=== PATIENT | male | born 1960 | race Caucasian/White ===

== ENCOUNTER 2024-11-22 18:02 | Emergency (ER) | payer MEDICARE, BC ==
[~2024-11-22] VITALS: Ht 170.2 cm; Wt 81.8 kg
[2024-11-22 18:17] VITALS: TEMP 97.8
--- NOTE | 2024-11-22 18:27 | ELECTROCARDIOGRAPH REPORT ---
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
[2024-11-22 18:45] LABS: MEAN PLATELET VOLUME 8.8 FL (7.4-10.4); RED CELL DISTRIBUTION WIDTH 13.8 % (11.5-14.5)
--- NOTE | 2024-11-22 18:50 | RADIOLOGY REPORT ---
CLINICAL HISTORY: CP TECHNIQUE: Single view of the chest was obtained. COMPARISON: None FINDINGS: The heart size and pulmonary vasculature are normal. The lungs are clear. IMPRESSION: NO ACUTE CARDIOPULMONARY PROCESS.
[2024-11-22 19:06] LABS: CREATININE 2.62 MG/DL (0.60-1.10); PRO BRAIN NATRIURETIC PEPTIDE 176 PG/ML (0-125); TOTAL CARBON DIOXIDE 25.1 MMOL/L (24-32); eCRCL 26 ML/MIN; eGFR 25 ML/MIN
[2024-11-22 21:14] VITALS: BP 146/63; PULSE 78; RESP 15; O2SAT 99
--- NOTE | 2024-11-22 21:30 | Physician Documentation ---
History of Present Illness ~ Chief Complaint: Irregular Heartbeat Stated Complaint: CP HPI Patient is a 64-year-old male that presents to the emergency department for evaluation of irregular heartbeat noted earlier today. Patient reports that he lives at his home outside working on his car sitting when he felt accelerated heart rate a pause followed by accelerated heart rate again. Patient reports that he was able to palpate his heart rate and it felt irregular he reported to the emergency department for evaluation. Patient reports that he is followed by a flat bed knitter. Has a history of chronic renal insufficiency. Denies shortness of breath chest pain chest pressure but does report lightheadedness and a need to sit down a couple of times during the episodes of irregular heartbeat. Medication Reconciliation Allergies: Coded Allergies: Sulfa (Sulfonamide Antibiotics) (Verified Allergy, Severe, RASH, 11/22/24) Review of Systems ROS As stated above in the HPI, otherwise all systems are reviewed and negative. Physical Exam Vital Signs: Temperature: 97.8, Heart Rate: 78, Respiratory Rate: 15, BP: 146/63, Pulse Oximetry: 99, Weight: 81.820 Oxygen Flow Rate: 0 Physical Exam VITALS: Reviewed and as above. GENERAL: Alert, no apparent distress. HEENT: Normocephalic, atraumatic, PERRL, EOMI, dry mucosa, no erythema RESPIRATORY: Lungs clear, normal breath sounds, no respiratory distress. CHEST: No accessory muscle use, no retractions CV: Regular rate, rhythm, no edema, no murmur, No: JVD GI: Soft, non-tender, bowels sounds present, no rebound, guarding, or rigidity BACK: No CVA tenderness, or swelling MUSCULOSKELETAL No deformities, no edema SKIN: Warm and dry, no rash NEURO: Oriented x4, No motor or sensory deficit PSYCH: Normal mood and affect, no agitation Progress Results/Orders Results/Orders Vital Signs 11/22/24 11/22/24 18:17 21:14 Temp 97.8 Pulse 88 78 Resp 16 15 B/P (MAP) 119/77 146/63 (90) Pulse Ox 98 99 O2 Flow Rate 0 Laboratory Tests Test 11/22/24 18:13 11/22/24 20:20 White Blood Count 5.4 Red Blood Count 4.09 L Hemoglobin 13.2 L Hematocrit 38.8 L Mean Corpuscular Volume 94.9 Mean Corpuscular Hemoglobin 32.4 H Mean Corpuscular Hemoglobin Concent 34.1 Red Cell Distribution Width 13.8 Platelet Count 261 Mean Platelet Volume 8.8 Neutrophils (%) (Auto) 50.4 Lymphocytes (%) (Auto) 35.2 Monocytes (%) (Auto) 10.3 Eosinophils (%) (Auto) 3.3 Basophils (%) (Auto) 0.8 Neutrophils # (Auto) 2.7 Lymphocytes # (Auto) 1.9 Monocytes # (Auto) 0.6 Eosinophils # (Auto) 0.2 Basophils # (Auto) 0.0 CBC Comment Sodium Level 137 Potassium Level 4.2 Chloride Level 104 Carbon Dioxide Level 25.1 Anion Gap 8 Blood Urea Nitrogen 43 H Creatinine 2.62 H Estimated GFR/1.73 m2 25 BUN/Creatinine Ratio 16.4 Glucose Level 95 Calcium Level 9.6 Troponin I High Sensitivity 18 36 Pro-B-Type Natriuretic Peptide 176 H Albumin 4.3 Thyroid Stimulating Hormone (TSH) 1.77 Chemistry Comments Troponin I High Sens Percent Delta 100 Troponin I Hi Sens Absolute Change 18 Medical Decision Making Findings Exam without evidence of volume overload so doubt heart failure. EKG without signs of active ischemia. Given the timing of pain to ER presentation, single troponin was negative so doubt NSTEMI. Presentation not consistent with acute PE,pneumothorax (not visualized on chest xr), thoracic aortic dissection, pericarditis, tamponade, pneumonia (no infectious symptoms, clear chest xr), myocarditis (no recent illness, neg trop). so plan to discharge patient home with PMD follow up. Patient noted to have decreased renal function even from his baseline. Discussed this with my attending. Recommendation at this time is to have the patient follow up with his flat bed knitter and regular physician consider a nephrology referral as patient demonstrates an exacerbation of chronic renal failure. No electrolyte derangement or fluid overload noted. Patient is stable to go home follow up as an outpatient. Education has been provided about patient's diagnoses today and the need for follow up with his primary care provider and flat bed knitter. The patient has been provided with instructions to follow up with the emergency department if he has any worsening of his current symptoms or any additional concerning symptoms i.e. shortness of breath chest pain chest pressure lightheadedness episodes of syncope or any other concerning symptoms that we discussed here today. Differential Dx:Considerations: Include: angina / CT, atrial dysrhythmia, atrial fibrillation, atrial flutter, MAT, PACs, PSVT, sinus tachycardia, WPW, 1st degree AV block, 2nd degree AVB-type 1, 2nd degree AVB-type 2, 3rd degree AV block, PVCs, torsades de pointes, ventricular fibrillation, ventricular tachycardia, other Differential Dx:Considerations: Include anxiety/panic attack, Include digoxin toxicity, Include electrolyte disorder, Include heart failure, Include hyperthyroidism, Include hyperventilation, Include hypoxia, Include pacemaker malfunction, Include pulmonary embolus, Include renal failure, Include other Departure Disposition: 01 HOME / SELF CARE / HOMELESS Impression: Primary Impression: Palpitations Additional Impression: Chronic renal insufficiency Condition: Stable Discharge Instructions: Chronic Kidney Disease, Adult, Palpitations, [id number], Cardiac Arrhythmia Additional Instructions: Exam without evidence of volume overload so doubt heart failure. EKG without signs of active ischemia. Given the timing of pain to ER presentation, single troponin was negative so doubt NSTEMI. Presentation not consistent with acute PE,pneumothorax (not visualized on chest xr), thoracic aortic dissection, pericarditis, tamponade, pneumonia (no infectious symptoms, clear chest xr), myocarditis (no recent illness, neg trop). so plan to discharge patient home with PMD follow up. Patient noted to have decreased renal function even from his baseline. Discussed this with my attending. Recommendation at this time is to have the patient follow up with his flat bed knitter and regular physician consider a nephrology referral as patient demonstrates an exacerbation of chronic renal failure. No electrolyte derangement or fluid overload noted. Patient is stable to go home follow up as an outpatient. Education has been provided about patient's diagnoses today and the need for follow up with his primary care provider and flat bed knitter. The patient has been provided with instructions to follow up with the emergency department if he has any worsening of his current symptoms or any additional concerning symptoms i.e. shortness of breath chest pain chest pressure lightheadedness episodes of syncope or any other concerning symptoms that we discussed here today. Referrals: NO PRIMARY CARE PROVIDER (PCP) Education Educated: Patient Educated regarding: diagnosis, treatment, need for follow up ESHA MACDAMS Nov 22, 2024 21:30
[2024-11-23] MEDS ORDERED: ALLO300T8 PO (00:33)
[2024-11-23] MEDS ORDERED: FENO160T PO (00:33)
[2024-11-23] MEDS ORDERED: EZET10TA48 PO (00:33)
[2024-11-23] MEDS ORDERED: LISI20TA28 PO (00:33)
[2024-11-24] MEDS ORDERED: METO-395 PO (12:53)
[2024-11-24] MEDS ORDERED: ASPI-1265 PO (12:53)
[2024-11-24] MEDS ORDERED: ISOS30TA84 PO (12:53)
== END 2024-11-22 21:34 | disposition home or self-care (01) ==
LOC: ER 18:03
DX: R00.2 Palpitations (principal); N18.9 Chronic kidney disease, unspecified; Z88.2 Allergy status to sulfonamides
CPT/HCPCS: 36415; 71045; 80048; 83880; 84443; 84484; 85025; 93005; 99285

== ENCOUNTER 2024-12-27 07:26 | Day surgery (SDC) | payer MEDICARE, BC ==
[2024-12-26 10:51] LABS: MEAN PLATELET VOLUME 8.7 FL (7.4-10.4); RED CELL DISTRIBUTION WIDTH 13.6 % (11.5-14.5)
[2024-12-26 11:05] LABS: APTT 25 SECONDS (22-32); INR 1.1 INR
[2024-12-26 11:07] LABS: CREATININE 2.24 MG/DL (0.60-1.10); TOTAL CARBON DIOXIDE 27.9 MMOL/L (24-32); eGFR 29 ML/MIN
[2024-12-27] VITALS (12 sets, daily range): BP systolic 102–136; BP diastolic 59–75; PULSE 55–69; RESP 10–18; TEMP 97.7; O2SAT 94–96
[~2024-12-27] VITALS: Ht 172.7 cm; Wt 77.7 kg
[~2024-12-27 07:26] MED LIST: ALLO300T8 PO; EZET10TA48 PO; FENO160T PO; LISI20TA28 PO; METO-395 PO
--- NOTE | 2024-12-27 08:06 | ELECTROCARDIOGRAPH REPORT ---
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 JUVENTINO Sol Measurements Intervals [place] Rate: 56 P: 89 [place]: 169 QRS: 65 QRSD: 100 T: 40 QT: 394 QTc: 381 Interpretive Statements Sinus rhythm Electronically Signed On 12-27-2024 14:44:[address] JUVENTINO Sol Please click the below link to view image of tracing.
[2024-12-27] MEDS ORDERED: ASPI-1674 PO (08:10)
[2024-12-27] MEDS ORDERED: ASPI-1265 PO (08:10)
[2024-12-27] MEDS ORDERED: ISOS30TA84 PO (08:13)
[2024-12-27] MEDS ORDERED: CHOL50CA2 PO (08:13)
[2024-12-27] MEDS ORDERED: VITC500T PO (08:13)
[2024-12-27] MEDS ORDERED: LIDOcaine 1% (10mg/ml) 2ml vial ONE (08:16)
[2024-12-27] MEDS ORDERED: iohexol 350 MG/ML 50ML vial IV ONE (08:16)
[2024-12-27] MEDS ORDERED: METO-539 PO (08:16)
[2024-12-27] MEDS ORDERED: verapamil 2.5 mg/ml inj IV ONE (08:16)
[2024-12-27] MEDS ORDERED: midazolam 1 mg/ML 2ml injection ONE (08:16)
[2024-12-27] MEDS ORDERED: fentaNYL/PF 50MCG/1 ML 2ML syringe ONE (08:16)
[2024-12-27] MEDS ORDERED: heparin 1,000unit/ml 10ml vial 10 ML ONE (08:16)
[2024-12-27] MEDS ORDERED: nitroGLYCERIN 500mcg/5mL D5W 5 ML IV ONE (08:18)
[2024-12-27] MEDS: sodium bicarbonate 1meq/ml syr 150 ML in dextrose 5%-water 1,000 ML IV ONE (08:26)
--- NOTE | 2024-12-27 14:34 | CARDIOLOGY REPORT ---
DATE OF SERVICE: 12/27/2024 DICTATING PHYSICIAN: JUVENTINO Carvajal MD CARDIAC CATHETERIZATION GENDER: Male. AGE: 64 years. PRIMARY PHYSICIAN: VAZQUEZ Prasad WASHER AND CAPPER MACHINE OPERATOR: JUVENTINO Carvajal MD INDICATION: The patient is a 64-year-old male with a history of hypertension, hyperlipidemia, CKD, and nonobstructive CAD who was hospitalized with STEMI on 11/23/2024 and found to have on Lexiscan an anteroseptal reversible defect. At that time, the patient had some important social event/wedding; hence, he went home on medical therapy and today is being scheduled for an elective cardiac catheterization. Risks, benefits, and alternative options discussed. Informed consent obtained. The patient had a cardiac catheterization back in 2002 at [facility] and was found to have nonobstructive CAD. He has a CKD with a creatinine around 2.3 and he is waiting for a current Nephrology consultation. The patient understands the risk of contrast nephropathy. He has been pre-treated with IV fluids, bicarbonate and Mucomyst. Risks, benefits, and alternative options discussed. Informed consent obtained. PROCEDURE TECHNIQUE: The patient underwent right heart catheterization from right antecubital approach, 6-[place] sheath. Postprocedure, access site hemostasis secured with manual compression. The patient underwent left heart catheterization from right radial approach, 6-[place] right radial sheath. Postprocedure, right radial access site hemostasis secured with manual radial band. The patient tolerated the procedure well. COMPLICATIONS: None. PROCEDURES: * Ultrasound-guided right radial artery visualization and access. * Right heart catheterization. * Left heart catheterization. * LVG. * Coronary cineangiography. * Conscious sedation time of 30 minutes. FINDINGS: HEMODYNAMICS: Aortic systolic 99, diastolic 57, mean 75 mmHg. LVEDP of 14 mmHg. There is no significant gradient across the aortic valve. Right atrial mean 2 mmHg. RV 23/6 mmHg. PA 17/1 mmHg. Pulmonary capillary wedge 3 mmHg. Cardiac output by thermodilution method 5.35 L/min. Cardiac index was 2.79 L/min/m2. Aortic oxygen saturation 95%. Pulmonary artery oxygen saturation 72%. CORONARY CINEANGIOGRAPHY: Coronary cineangiography showed normal LV function. LV ejection fraction 60%. Left main coronary artery was engaged with JL4 catheter with a right radial approach, is large caliber with mild luminal irregularities. LAD is a medium caliber vessel arising at the bifurcation of left main coronary artery, courses through the anterior interventricular groove, wrapping around the apex. The LAD near the septal jacquard loom weaver close to the bifurcation has 80% plus narrowing. Diagonal ostium is moderately involved. Diagonal is 2.25 mm caliber vessel with mild luminal irregularities. Circumflex artery is a medium caliber vessel arising at the bifurcation of left main coronary artery, courses through the left AV groove. Mid circumflex has 30% narrowing. Dominant OM is 2.75 mm with mild luminal irregularities. Ongoing circumflex has 80% narrowing as well. It is a relatively small vessel. Right coronary artery is a medium caliber vessel arising from the right aortic sinus, courses through the right AV groove and enters the posterior crux by dividing into PDA and a posterolateral branch. RCA and its branches have mild luminal irregularities. IMPRESSION: A 64-year-old male with LV ejection fraction 60%. LVEDP of 14 mmHg with no significant gradient across the aortic valve. Pulmonary capillary wedge pressure 3 mmHg. PA systolic pressure of 17 mmHg. Left main normal. LAD at the origin of the diagonal has 80% narrowing. Circumflex with mid 30% narrowing. Ongoing circumflex distally is small vessel with 80% narrowing. RCA with minimal luminal irregularities. RECOMMENDATIONS: Recommend continue aggressive coronary risk factor modification. The coronary intervention will be staged because of his CKD. Continue optimal hydration. Risks, benefits, and alternative options discussed. The patient was told to come back to the ER if he has any more chest pain when he is waiting for his coronary stent. JUVENTINO Carvajal MD TID: [id number] RECEIPT: [id number] /JUN cc: VAZQUEZ Prasad MTDD
[2024-12-27 14:42] LABS: ISTAT HGB ART 12.2 g/dl (14.0-17.9); ISTAT Hct ART 36 %PCV (42-52); ISTAT O2 SATURATION ARTERIAL 95 % (95-98); ISTAT SOURCE BLNK
[2024-12-27 14:43] LABS: ISTAT HGB MIX 12.2 g/dl (14.0-17.9); ISTAT Hct MIX 36 %PCV (42-52); ISTAT O2 SATURATION MIX VENOUS 72 % (60-80); ISTAT SOURCE BLNK
== END 2024-12-27 15:00 | disposition home or self-care (01) ==
LOC: SSTAY O 07:26
PROVIDERS: ATTEND Internal Medicine Cardiovascular Disease
DX: R94.39 Abnormal result of other cardiovascular function study (principal); I25.10 Atherosclerotic heart disease of native coronary artery without angina pectoris; I12.9 Hypertensive chronic kidney disease with stage 1 through stage 4 chronic kidney disease, or unspecified chronic kidney disease; N18.9 Chronic kidney disease, unspecified; E78.5 Hyperlipidemia, unspecified; M10.9 Gout, unspecified; Z79.899 Other long term (current) drug therapy; Z98.890 Other specified postprocedural states; Z88.2 Allergy status to sulfonamides; Z79.01 Long term (current) use of anticoagulants; Z82.49 Family history of ischemic heart disease and other diseases of the circulatory system
CPT/HCPCS: 36415; 80048; 82803; 85014; 85025; 85610; 85730; 93005; 93460; 99152; 99153; A6258; A6402; C1725; C1751; C1894; J1644; J2003; J2250; J3010; J3490; J7030; J7070; Q9967; Z7610; 76937

== ENCOUNTER 2025-01-01 08:41 | Day surgery (SDC) | payer MEDICARE, BC ==
[2024-12-29 10:20] LABS: MEAN PLATELET VOLUME 8.1 FL (7.4-10.4); RED CELL DISTRIBUTION WIDTH 13.4 % (11.5-14.5)
[2024-12-29 10:32] LABS: APTT 25 SECONDS (22-32); INR 1.0 INR
[2024-12-29 10:36] LABS: CREATININE 1.85 MG/DL (0.60-1.10); TOTAL CARBON DIOXIDE 30.0 MMOL/L (24-32); eGFR 37 ML/MIN
[~2025-01-01] VITALS: Ht 172.7 cm; Wt 78.0 kg
[2025-01-01] VITALS (14 sets, daily range): BP systolic 102–162; BP diastolic 63–77; PULSE 52–78; RESP 12–20; TEMP 98.2; O2SAT 93–98
[~2025-01-01 08:41] MED LIST changes: +ASPI-1674 PO; +CHOL50CA2 PO; -EZET10TA48 PO; +EZET10TA80 PO; +ISOS30TA84 PO; -METO-395 PO; +METO-539 PO; +VITC500T PO
--- NOTE | 2025-01-01 09:31 | ELECTROCARDIOGRAPH REPORT ---
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 JUVENTINO Sol Measurements Intervals [place] Rate: 62 P: 57 [place]: 169 QRS: 33 QRSD: 97 T: 20 QT: 386 QTc: 392 Interpretive Statements Sinus rhythm Electronically Signed On 01-01-2025 17:11:[address] JUVENTINO Sol Please click the below link to view image of tracing.
[2025-01-01] MEDS: sodium bicarbonate 1meq/ml syr 150 ML in dextrose 5%-water 1,000 ML IV ONE (10:44)
[2025-01-01] MEDS ORDERED: verapamil 2.5 mg/ml inj IV ONE (11:04)
[2025-01-01] MEDS ORDERED: LIDOcaine 1% (10mg/ml) 2ml vial ONE (11:04)
[2025-01-01] MEDS ORDERED: heparin 1,000unit/ml 10ml vial 10 ML ONE (11:05)
[2025-01-01] MEDS ORDERED: nitroGLYCERIN 500mcg/5mL D5W 5 ML IV ONE ×3 (11:06→12:34)
[2025-01-01] MEDS ORDERED: fentaNYL/PF 50MCG/1 ML 2ML syringe ONE (11:41)
[2025-01-01] MEDS ORDERED: midazolam 1 mg/ML 2ml injection ONE (11:41)
[2025-01-01] MEDS ORDERED: heparin 25,000 UNIT/250ml bag 250 ML IV ONE (11:43)
[2025-01-01] MEDS ORDERED: clopidogrel 300mg tablet ONE (12:45)
[2025-01-01] MEDS ORDERED: CLOP-32 PO (13:29)
[2025-01-01] MEDS ORDERED: ASPI-1265 PO (13:30)
[2025-01-01] MEDS ORDERED: EVOL140P3 SUBCUT (13:31)
[2025-01-01] MEDS ORDERED: ASPI-611 PO (13:40)
--- NOTE | 2025-01-01 13:48 | ELECTROCARDIOGRAPH REPORT ---
[facility] Test Date: 2025-01-01 Test Time: 13:45:26 Pat Name: RAMYA CLIFFORD Department: [facility] Patient ID: [id number] Room: Gender: M Sample Book Maker: NAYANA : 1960 Requested By: BLOSSOM SOL Order Number: [id number] Reading MD: Dr. JUVENTINO Sol Measurements Intervals [place] Rate: 51 P: 76 [place]: 188 QRS: 49 QRSD: 97 T: 17 QT: 422 QTc: 389 Interpretive Statements Sinus rhythm Electronically Signed On 01-01-2025 17:11:[address] JUVENTINO Sol Please click the below link to view image of tracing.
[2025-01-01] MEDS: ACETYLCYSTEINE 200 MG/1 ML 4 ML ORAL SOLUTION PO ONE (18:09)
--- NOTE | 2025-01-02 04:15 | CARDIOLOGY REPORT ---
DATE OF SERVICE: 01/01/2025 DICTATING PHYSICIAN: JUVENTINO Carvajal MD CORONARY INTERVENTION REPORT GENDER: Male. AGE: 64. HEIGHT: 172 cm. WEIGHT: 78 kg. BODY SURFACE AREA: 1.19 m2. INDICATION: The patient is a 64-year-old male with history of hypertension, hyperlipidemia, CKD, CAD, had an NSTEMI on 11/23/2024, and a Lexiscan, showed anteroseptal defect and the patient came back on 12/27/2024 for coronary angiography. At that time, he was found to have an EF of 60%, proximal mid LAD 80% narrowing, diagonal mild narrowing, mid circumflex 80% narrowing. The patient also had CKD. His procedure was staged and after hydration, his creatinine is currently 1.8. After discussing risks, benefits, alternative options, the patient underwent coronary intervention. Risks, benefits, and alternative options were discussed, informed consent was obtained. DESCRIPTION OF PROCEDURE: The patient underwent coronary intervention through right radial branch, 6-Stateless right radial sheath. Post surgery access site hemostasis secured with right radial band. The patient tolerated the procedure well. COMPLICATIONS: None. PROCEDURE: 1. PTCA stenting of the LAD. 2. Angioplasty of the diagonal ostium. 3. PTCA stenting of 80% mid circumflex narrowing. 4. Conscious sedation of 60 minutes. FINDINGS: HEMODYNAMICS: Aortic systolic 120, diastolic 80. Procedure carried out after adequate. A 6-Stateless XB LAD 3.5 gave good support. The LAD lesion was crossed with PT2 moderate wire. Because of the angulation, I could not get into the diagonal branch; however, the LAD lesion was angioplastied with 2/12 mm noncompliant balloon at 10 atmospheric pressure. After that, we were able to avoid the diagonal lesion. Diagonal lesion was angioplastied with 2/12 balloon at 8 atmospheric pressure. LAD lesion was stented with proximal to mid. There was a moderate long narrowing as well besides the tight narrowing, so the lesion was stented with 2.5/30 Resolute Markos stent at 12 followed by 13 atmospheric pressure. The patient postdilated with 3/12 mm NC balloon at 13 atmospheric pressure with ALIDA 3 flow. The patient tolerated the procedure well with no complication. PTCA STENTING OF THE MID CIRCUMFLEX ARTERY: Lesion was crossed with a PT2 moderate wire. Lesion was angioplastied with 2/12 semi complaint balloon at 8 atmospheric pressure. The lesion was stented with 2/18 Resolute Markos stent deployed at 12 atmospheric pressure post procedure 0%, ALIDA 3 flow. The patient tolerated the procedure well with no complication. IMPRESSION: A 64-year-old male with 80% long LAD lesion successfully angioplastied and stented with 2.5/30 Resolute [place] stent postdilated to three mm. Diagonal ostium was angioplastied. Mid circumflex 80% successfully angioplastied and stented with 2/8 Resolute [place]ford stent to 0% with ALIDA 3 flow. The patient tolerated the procedure well with no complications. RECOMMENDATIONS: .. Recommended diet, weight loss, and exercise program. Keeping LDL less than 70 mg%, and regular exercise program. The patient is intolerant of statin. He was prescribed Repatha 140 mg subcutaneous b.i.d. Uninterrupted aspirin and Plavix at least for one year emphasized to the patient. JUVENTINO Carvajal MD TID: [id number] RECEIPT: [id number] FABIÁN/SHARIF/OLIVIA cc: Lopez Koehler MD MTDD
== END 2025-01-01 19:00 | disposition home or self-care (01) ==
LOC: SSTAY O 08:41
PROVIDERS: ATTEND Internal Medicine Cardiovascular Disease
DX: I25.10 Atherosclerotic heart disease of native coronary artery without angina pectoris (principal); I12.9 Hypertensive chronic kidney disease with stage 1 through stage 4 chronic kidney disease, or unspecified chronic kidney disease; N18.9 Chronic kidney disease, unspecified; E78.5 Hyperlipidemia, unspecified; M10.9 Gout, unspecified; Z79.899 Other long term (current) drug therapy; Z98.890 Other specified postprocedural states; Z88.2 Allergy status to sulfonamides
CPT/HCPCS: 36415; 80048; 85025; 85347; 85610; 85730; 92921; 93005; 99152; 99153; A6258; A6402; C1725; C1751; C1769; C1874; C1894; C9600; J1644; J2003; J2250; J3010; J3490; J7030; J7070; Q0163; Q9967; Z7610; 76937; C9601

== ENCOUNTER 2025-01-28 14:52 | Inpatient (IN) | payer MEDICARE, BC ==
[~2025-01-28] VITALS: Ht 170.2 cm; Wt 78.4 kg
[~2025-01-28 14:52] MED LIST changes: +ASPI-611 PO; +CLOP-32 PO; +EVOL140P3 SUBCUT
--- NOTE | 2025-01-28 15:00 | ELECTROCARDIOGRAPH REPORT ---
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 Rosy Sargent Measurements Intervals [place] Rate: 140 P: 0 [place]: 0 QRS: 39 QRSD: 112 T: -37 QT: 261 QTc: 398 Interpretive Statements Atrial flutter with predominant 2:1 AV block Borderline intraventricular conduction delay Low voltage, precordial leads Repol abnrm suggests ischemia, diffuse leads Electronically Signed On 01-28-2025 16:20:[address] Rosy Sargent Please click the below link to view image of tracing.
--- NOTE | 2025-01-28 15:21 | Physician Documentation ---
History of Present Illness ~ Chief Complaint: Palpitations Stated Complaint: PALPITATIONS Time Seen by MD: 15:16 OK to notify your PCP?: Yes Primary Medical Doctor: LION ERNANDEZ MD Source: patient, RN/MD, RN notes reviewed, old records Mode of Arrival: POV Exam Limitations: no limitations HEART Score: 5 HPI This patient is a 64 y/o male who presents to ED for palpitations. Patient reports that approximately 30 minutes prior to arrival he started to experience dizziness and palpitations. This prompted him to check his heart rate, which was in the 150s. Patient states that he has had a similar episode once in the past in November this year. After that, patient had two stents placed by library technology instructor, Dr. Carvajal and he states he has not had another similar episode until today. Patient reports he is currently taking blood thinners ASA and Plavix, and has not missed any doses. He denies any recent stimulant or alcohol use. Patient denies any other associated symptoms at this time. Patient denies any other alleviating or exacerbating factors. Medication Reconciliation Allergies: Coded Allergies: Sulfa (Sulfonamide Antibiotics) (Verified Allergy, Severe, RASH, 11/22/24) Scheduled Allopurinol (Allopurinol), 1 TAB PO DAILY, (Reported) Ascorbic Acid* (Vitamin C*), 1 TAB PO DAILY, (Reported) Aspirin (Aspirin), 2 TAB PO DAILY, (Reported) Cholecalciferol (Vitamin D3) (Vitamin D3), 1 CAP PO DAILY, (Reported) Clopidogrel Bisulfate (Plavix), 1 TAB PO DAILY, (Reported) Ezetimibe (Ezetimibe), 1 TAB PO DAILY, (Reported) Fenofibrate (Fenofibrate), 1 TAB PO DAILY, (Reported) Lisinopril (Lisinopril), 1 TAB PO DAILY, (Reported) Discontinued Medications Aspirin (Aspirin), 1 TAB PO DAILY, (Reported) Discontinued Reason: patient no longer taking Aspirin (Aspir 81), 2 TAB PO DAILY Discontinued Reason: patient no longer taking Clopidogrel Bisulfate (Plavix), 1 TAB PO DAILY Discontinued Reason: patient no longer taking Evolocumab (Repatha Sureclick), 1 SYR SUBCUT Q2W Discontinued Reason: patient no longer taking Isosorbide Mononitrate (Isosorbide Mononitrate Er), 1 TAB PO BID, (Reported) Discontinued Reason: patient no longer taking Metoprolol Succinate* (Toprol Xl*), 1 TAB PO DAILY, (Reported) Discontinued Reason: patient no longer taking Past Medical History Past Medical History: Atrial Fibrillation, Coronary Artery Disease, Hypertension Past Surgical History: angioplasty Patient History: Coronary artery disease in mother Smoking Status: Never smoker Alcohol Use: None Drug Use: none Review of Systems All Other Systems at this time: Reviewed and Negative Physical Exam Vital Signs: RN Vital Signs have been reviewed: Yes, Temperature: 98.0, Source: Oral, Heart Rate: 144, Respiratory Rate: 20, BP: 130/69, Pulse Oximetry: 95, Weight: 78.400 Oxygen Flow Rate: 0 Physical Exam General: The patient is well developed, well nourished, nontoxic appearing and is in no acute distress. Skin: [place], warm and dry with no rashes. HEENT: Head was normocephalic and atraumatic. Eyes - pupils equal, round, reactive to light and accommodation. Extraocular movements were intact. Conjunctivae were nonicteric. Ears - bilateral tympanic membranes were normal. The mouth and oropharynx were clear with moist mucous membranes. There were no pharyngeal exudates or erythema. Neck: Supple and nontender. There was no jugular venous distention, lymphadenopathy, thyromegaly or masses. Chest: Clear to auscultation bilaterally without wheezes, rales or rhonchi. No accessory muscle use. No dullness to percussion. Heart: Rapid rate and irregular rhythm. S1, S2. No murmurs. Palpation of the chest wall was normal. No rubs or thrills. Abdomen: Soft, nontender and nondistended. Positive bowel sounds. No guarding or rebound. No hepatosplenomegaly or palpable masses. Extremities: No cyanosis, clubbing or edema. The patient moves all extremities. Pulses were equal and symmetric. Neurologic: Cranial nerves II-XII were intact. Sensation was intact to light touch throughout. Motor strength was 5/5 in all four extremities. Deep tendon reflexes were intact in both upper and lower extremities. Psychologic: The patient was oriented to person, place and time. The patient demonstrated appropriate judgement and insight. Progress Progress Note 1558: Paged hospitalist 1611: Case discussed with hospitalist who agrees to evaluate patient for admission. Results/Orders Results/Orders Orders - LAZARO LOVELACE MD Electrocardiogram (01/28/25 14:55) Chest,Single View (01/28/25 15:49) Monitor (01/28/25 15:01) Saline Lock (01/28/25 15:01) Oxygen (01/28/25 15:01) Hs Troponin I W Calculations (01/28/25 18:01) Diltiazem-Ns 100mg/100ml (Cardizem-Ns 10 (01/28/25 15:30) Page Hospitalist (01/28/25 15:58) Fill Out Med Reconciliation (01/28/25 15:58) Completed Orders - LAZARO LOVELACE MD Electrocardiogram (01/28/25 14:55) Chest,Single View (01/28/25 15:49) Cbc/Diff (01/28/25 15:01) BMP (01/28/25 15:01) PBNP (01/28/25 15:01) Hs Troponin I W Calculations (01/28/25 15:01) Hs Troponin I W Calculations (01/28/25 17:01) Ethanol (01/28/25 15:17) MG (01/28/25 15:17) Urinalysis, Cult If Indicated (01/28/25 15:17) Drug Screen, Urine (01/28/25 15:17) Magnesium Sulf-Water 2g/50ml (Magnesium (01/28/25 15:20) Diltiazem Iv (Cardizem Iv 5mg/Ml Inj.) (01/28/25 15:30) Hgb A1c (01/28/25 14:58) Medications Received in ER Medications (Trade) Dose Ordered Sig/Opal Route PRN Reason Start Time Stop Time Status Last Admin Dose Admin Magnesium Sulfate 50 ml @ 25 mls/hr ONCE ONCE IV 01/28/25 15:20 01/28/25 17:19 DC 01/28/25 15:26 25 MLS/HR (Cardizem IV 5mg/ ml inj.) 15 mg ONCE ONCE IV 01/28/25 15:30 01/28/25 15:31 DC 01/28/25 15:40 15 MG Diltiazem HCl 100 ml @ 5 mls/hr Q20H PRN IV PER PROTOCOL 01/28/25 15:30 10/26/25 15:40 5 MLS/HR Vital Signs 01/28/25 01/28/25 01/28/25 01/28/25 15:03 15:40 15:40 15:52 Temp 98.0 Pulse 144 148 142 124 Resp 20 18 B/P (MAP) 130/69 128/70 125/75 112/75 (87) Pulse Ox 95 94 O2 Flow Rate 0 0 01/28/25 01/28/25 01/28/25 15:54 16:00 16:03 Pulse 124 84 Resp 16 11 B/P (MAP) 127/72 105/71 (82) Pulse Ox 94 O2 Flow Rate 0 Laboratory Tests Test 01/28/25 14:58 White Blood Count 5.3 Red Blood Count 4.00 L Hemoglobin 13.3 L Hematocrit 38.1 L Mean Corpuscular Volume 95.4 Mean Corpuscular Hemoglobin 33.2 H Mean Corpuscular Hemoglobin Concent 34.8 Red Cell Distribution Width 13.9 Platelet Count 277 Mean Platelet Volume 8.8 Neutrophils (%) (Auto) 50.3 Lymphocytes (%) (Auto) 35.4 Monocytes (%) (Auto) 8.9 Eosinophils (%) (Auto) 4.4 Basophils (%) (Auto) 1.0 Neutrophils # (Auto) 2.7 Lymphocytes # (Auto) 1.9 Monocytes # (Auto) 0.5 Eosinophils # (Auto) 0.2 Basophils # (Auto) 0.1 CBC Comment Sodium Level 133 L Potassium Level 3.9 Chloride Level 98 L Carbon Dioxide Level 25.5 Anion Gap 10 Blood Urea Nitrogen 52 H Creatinine 2.55 H Estimated GFR/1.73 m2 25 BUN/Creatinine Ratio 20.4 H Glucose Level 129 H Hemoglobin A1c 5.9 Calcium Level 9.7 Magnesium Level 2.3 Troponin I High Sensitivity 6 Pro-B-Type Natriuretic Peptide < 30 Albumin 4.3 Chemistry Comments Ethyl Alcohol Level < 10 Re-Evaluation Re-Evaluation : Treatment Given: calcium channel marguerite Re-Evaluation: Improved Additional Comment Patient was seen and examined. Patient was given reassurance. Patient just had cardiac stents placed. There was no signs of ischemic injury. However patient is in rapid AFib with RVR given doses of Cardizem bolus and drip. Patient initially received magnesium for possible electrolyte abnormalities. Laboratory work showed some mild anemia with a hemoglobin of 13 hematocrit of 38 but no signs of infection with a normal WBC of 5.3. Troponins are negative x2 proBNP negative however patient does have some abnormalities on chemistry with a sodium slightly low at 133 potassium 3.9 which is reassuring and normal magnesium 2.3 before receiving additional magnesium chloride 98 CO2 25 BUN 52 creatinine 2.55 with a ratio of 20.4 with glucose elevated at 129. Patient has worsening kidney functions from prior visits. Tox screen is negative alcohol is negative as well urine is negative for any urinary tract infection. After being placed on a monitor patient is started to become rate controlled heart rate in the 70s who would have intermittent paroxysmal AFib with normal sinus rhythm. Continuous proteomics scientist interpretation shows rapid AFib heart rate 140s, occasional ectopy, abnormal, my interpretation. Pulse oximetry monitor interpretation shows normal oxygenation 95% room air, normal, my interpretation. 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 Lazaro Lovelace Measurements Intervals [place] Rate: 140 P: 0 CO: 0 QRS: 39 QRSD: 112 T: -37 QT: 261 QTc: 398 Interpretive Statements Atrial flutter with predominant 2:1 AV block Borderline intraventricular conduction delay Low voltage, precordial leads Repol abnrm suggests ischemia, diffuse leads Electronically Signed On 01-28-2025 16:20:[address] Lazaro Lovelace Please click the below link to view image of tracing. EKG Date and Time:01/28/25 1458 Electronically Signed by: LAZARO LOVELACE MD Date and Time: 01/28/25 1620 NO PRIMARY CARE PROVIDER~ cc: ~ Chest X-Ray : Interpreted By: both Additional Comments [address] [address] DIAGNOSTIC RADIOLOGY Patient: RAMYA CLIFFORD Medical Record: [id number] [facility] : 1960, Age: 64 Sex: Male Location: ER Patient Status: [facility] ER Service Date/Time: 01/28/251548 Ordering Physician: LAZARO LOVELACE MD Exam: CHEST,SINGLE VIEW DI CHEST,SINGLE VIEW, HISTORY: CP COMPARISON: DI CHEST,SINGLE VIEW on DOS: 11/22/24 DI CHEST,SINGLE VIEW on DOS: 11/22/24 TECHNICAL DATA: 1 view of the chest was obtained. FINDINGS: Lines and tubes: None Cardiomediastinal silhouette: normal Pulmonary vasculature: normal Lung expansion: normal Lung airspace: normal Lung interstitium: normal Pleura: normal Pneumothorax: no Bones: Unremarkable Other: no IMPRESSION: No acute intrathoracic abnormality. Electronically Signed by:PIERO SILVEIRA MD Date & Time: 01/28/251555 Dictated by: PIERO SILVEIRA MD Dictation date and time: 01/28/25 155 Primary Care Provider: NO PRIMARY CARE PROVIDER cc: LAZARO LOVELACE MD ~ EDMD DR. LOVELACE REVIEWED IMAGES AND AGREES WITH ABOVE FINDINGS Heart Score: Heart Score Response (Comments) Value History Slightly Suspicious 0 EKG Repolarization Disturb 1 Age >65 2 Risk Factors >3 or Hx ASHD 2 Troponin Normal limit 0 Total 5 Medical Decision Making Additional information obtaine: old records Findings Rapid AFib with possible ischemic changes, electrolyte abnormalities infectious volume status such as dehydration around considered. Differential Dx:Considerations: Include: angina / HI, atrial dysrhythmia, atrial fibrillation, atrial flutter, MAT, PACs, PSVT, sinus tachycardia, WPW, 1st degree AV block, 2nd degree AVB-type 1, 2nd degree AVB-type 2, 3rd degree AV block, PVCs, torsades de pointes, ventricular fibrillation, ventricular tachycardia, other Differential Dx:Considerations: Include anxiety/panic attack, Include digoxin toxicity, Include electrolyte disorder, Include heart failure, Include hyperthyroidism, Include hyperventilation, Include hypoxia, Include pacemaker malfunction, Include pulmonary embolus, Include renal failure, Include other Departure Time of Disposition: 15:58 Disposition: ADMITTED INPATIENT Admitted to Inpatient Unit: yes, to hospitalist Admission Level of Care: PCU with Tele Impression: Primary Impression: Atrial fibrillation with RVR Additional Impressions: Acute on chronic renal insufficiency Hyponatremia Condition: Guarded Referrals: NO PRIMARY CARE PROVIDER (PCP) Education Educated: Patient Educated regarding: diagnosis, treatment, prognosis Critical Care Note Total Time (mins): 30 Critical Care Note The very real possibility of a deterioration of this patient's condition requir ed the highest level of my preparedness for sudden, emergent intervention. I provided critical care services, which included medication orders, frequent reevaluations of the patient's condition and response to treatment, ordering and reviewing test results, and discussing the case with various consultants. Excludes time spent performing separately billable procedures. The critical care time associated with the care of the patient was 30 minutes. Signature Scribe Signature: Scribed for Lazaro Lovelace MD by Shirlene Garcia. 01/28/25 15:40 Attestation: The note accurately reflects work and decisions made by me.Lazaro Lovelace MD 01/28/25 15:21 LAZARO LOVELACE MD Jan 28, 2025 15:21
[2025-01-28] MEDS: magnesium sulf-water 2g/50mL 50 ML IV ONE (15:26)
[2025-01-28] MEDS: diltiazem 5mg/ml 5ml inj. IV ONE (15:40)
[2025-01-28] MEDS: diltiazem-NS 100mg/100ml 100 ML IV PRN (15:40)
[2025-01-28 15:49] LABS: MEAN PLATELET VOLUME 8.8 FL (7.4-10.4); RED CELL DISTRIBUTION WIDTH 13.9 % (11.5-14.5)
--- NOTE | 2025-01-28 15:58 | RADIOLOGY REPORT ---
DI CHEST,SINGLE VIEW, HISTORY: CP COMPARISON: DI CHEST,SINGLE VIEW on DOS: 11/22/24 DI CHEST,SINGLE VIEW on DOS: 11/22/24 TECHNICAL DATA: 1 view of the chest was obtained. FINDINGS: Lines and tubes: None Cardiomediastinal silhouette: normal Pulmonary vasculature: normal Lung expansion: normal Lung airspace: normal Lung interstitium: normal Pleura: normal Pneumothorax: no Bones: Unremarkable Other: no IMPRESSION: No acute intrathoracic abnormality.
[2025-01-28 16:02] LABS: CREATININE 2.55 MG/DL (0.60-1.10); PRO BRAIN NATRIURETIC PEPTIDE < 30 PG/ML (0-125); TOTAL CARBON DIOXIDE 25.5 MMOL/L (24-32); eCRCL 27 ML/MIN; eGFR 25 ML/MIN
[2025-01-28] MEDS ORDERED: magnesium Cl slow-release 64mg tablet PO PRN (16:10)
[2025-01-28] MEDS ORDERED: potassium Cl 40MEQ/1/2NS 520ml 520 ML IV PRN (16:10)
[2025-01-28] MEDS ORDERED: magnesium sulf-water 4G/100mL 100 ML IV PRN (16:10)
[2025-01-28] MEDS ORDERED: potassium Cl 20 mEq SR tablet PO PRN ×2 (16:10)
[2025-01-28] MEDS ORDERED: ondansetron/PF 4mg/2ml inj IV PRN (16:10)
[2025-01-28] MEDS ORDERED: mag hydrox/Alum hydrox/simeth 30ml oral suspension PO PRN (16:10)
[2025-01-28] MEDS ORDERED: magnesium hydroxide 30ml (MOM) UD suspension PO PRN (16:10)
[2025-01-28] MEDS ORDERED: magnesium sulf-water 2g/50mL 50 ML IV PRN (16:10)
[2025-01-28 16:16] LABS: ETHANOL < 10 MG/DL (<10)
[2025-01-28] MEDS: PERFLUTREN PROTEIN-A MICROSPHR (Optison) 0.22 MG/ML 3ML VIAL IV ONE (16:21)
[2025-01-28] MEDS ORDERED: CLOP-32 PO (16:30)
[2025-01-28] MEDS ORDERED: ASPI-1265 PO (16:30)
[2025-01-28 16:46] LABS: LEUKOCYTE ESTERASE ,URINE NEGATIVE (Neg); NITRITES, URINE NEGATIVE (Neg); OCCULT BLOOD,URINE NEGATIVE (Neg)
[2025-01-28 16:48] LABS: UA COLLECTION TYPE URINAL
[2025-01-28 17:03] LABS: URINE AMPHETAMINE SCREEN NEGATIVE (Neg); URINE BARBITUATE SCREEN NEGATIVE (Neg); URINE BENZODIAZEPINES SCREEN NEGATIVE (Neg); URINE CANNABINOID SCREEN NEGATIVE (Neg); URINE COCAINE SCREEN NEGATIVE (Neg); URINE METHADONE SCREEN NEGATIVE (Neg); URINE OPIATE SCREEN NEGATIVE (Neg); URINE PHENCYCLIDINE SCREEN NEGATIVE (Neg)
--- NOTE | 2025-01-28 17:48 | HISTORY AND PHYSICAL-Residence ---
History & Physical Providers to CC Resident Creating Document: WILD HAGAN, RES ~ History of Present Illness Primary Medical Doctor: LION KOEHLER MD Reason for Admit\Complaint: Palpitations History of Present Illness 64-year-old male with HTN, HLD, known CAD, and chronic kidney disease (baseline creatinine 1.7 in 2023, eGFR 42) initially presented on 11/22/2024 to the ED with palpitations. During that hospitalization he had rate variability on telemetry ([id number]), normal K and TSH, and an echocardiogram with preserved LV function (EF 6070%). A Lexiscan showed reversible anteroseptal and lateral defects. Coronary angiography was performed 12/27/[address] Too Fenton and found severe coronary disease (proximalmid LAD 80%, mid circumflex 80%). He underwent right radial PTCA with stents to the proximalmid LAD and mid circumflex; the diagonal ostium was balloon-angioplastied. He had known CKD and was hydrated; creatinine during prior admission trended down to 1.8 and he was discharged on metoprolol succinate and isosorbide dinitrate. He now presents again today with palpitations beginning at 2:30 PM. He claims this episode was similar to the 1 he had in November 2024. He also denied symptoms like chest pain or shortness of breath during the episode. The episode was constant until he received the diltiazem drip in the ED. He claims that the episode was associated with mild dizziness but denied any syncopal attacks. In the ED he was noted to be in atrial flutter with 2:1 AV block; he received a diltiazem drip and converted to sinus rhythm with HR 70 and BP 94/68. Current labs: creatinine 2.55 (BUN 52), troponins negative, tox screen negative, ETOH <10. Prior admission urine studies: urine creatinine 147, urine sodium 109, urine potassium 26, urine urea 970. Recent A1c 6.3. Lipids: LDL 82, total chol 146, TG 162, TSH 1.86. He reports chronic elevation of creatinine since 2019 and a remote kidney stone >10 years ago; renal ultrasound during last admission showed a left renal cyst and no acute changes. He denies urinary symptoms now. Current cardiology follow-up is with Dr. Too Fenton (original recycling program manager Dr. Chong previously involved). PCP: Dr. Koehler Supervisor Conditioning Yard: Dr. Too Fenton Lives at home with , ambulates independently Allergies: Coded Allergies: Sulfa (Sulfonamide Antibiotics) (Verified Allergy, Severe, RASH, 11/22/24) Home Medications Home Medications Active Reported Plavix (Clopidogrel Bisulfate) 75 Mg Tablet 1 Tab PO DAILY 30 Days Aspirin 81 Mg Tab.chew 2 Tab PO DAILY 30 Days Vitamin D3 (Cholecalciferol (Vitamin D3)) 50 Mcg (2000 Unit) Capsule 1 Cap PO DAILY 30 Days Vitamin C* (Ascorbic Acid) 500 Mg Tablet 1 Tab PO DAILY 30 Days Ezetimibe 10 Mg Tablet 1 Tab PO DAILY Fenofibrate 160 Mg Tablet 1 Tab PO DAILY Allopurinol 300 Mg Tablet 1 Tab PO DAILY Lisinopril 20 Mg Tablet 1 Tab PO DAILY Past Medical History Past Medical History Hypertension Hyperlipidemia Gout on allopurinol Renal calculi Silent ischemia in 2002, underwent angiogram which was normal CKD since 2019 CAD status post coronary catheterization with stent placement Past Surgical History Surgical History Comment Ankle surgery for neuroma in 2000 Surgery for pilonidal cyst in 2001 Coronary catheterization with stent placement on 01/01/2025 Family History Family History: Coronary artery disease in mother Past Social History Social History Comment Denied smoking, alcohol and illicit use of drugs Alcohol Use: None Drug Use: None ROS ROS Constitutional: No fever, chills, dizziness, weight gain or loss Eyes: No pain, erythema, discharge, blurring of vision ENT: No sore throat, epistaxis, tinnitus Cardiovascular: Palpitations noted, No Shortness of breath. Chest pressure, chest discomfort, palpitations, syncope, lower extremity edema, paroxysmal nocturnal dyspnea Respiratory: No Shortness of breath and cough present, No hemoptysis Gastrointestinal: Normal appetite. No nausea, vomiting, diarrhea, constipation, hematemesis, abdominal pain, bloating, melena or fresh blood Musculoskeletal:chronmic edema. Integumentary: No change in skin, hair, nails. No swelling, bruising, abrasions Neurologic: No headache, neck pain, numbness or tingling of the extremities, weakness Psychiatric: No delusions, depression, loss of interest in normal activity or change in sleep pattern, hallucinations, suicidal ideations Endocrine: No fatigue, weakness, polydipsia, polyuria, change in appetite, heat or cold intolerance, sweating, dry skin Hematological: No bleeding, petechiae, bruising Allergies: No asthma or urticaria Exam Vitals: Vital Signs Date Time Temp Pulse Resp B/P (MAP) Pulse Ox O2 Delivery O2 Flow Rate FiO2 01/28/25 16:13 70 103/65 01/28/25 16:03 11 94 0 01/28/25 15:03 98.0 General: Awake , alert, and oriented x4, resting comfortably in the bed, in no acute distress HEENT: Atraumatic, normocephalic, EOMI, anicteric sclera ; pink conjunctiva Neck: Trachea midline. Supple, full range of motion, no JVD Cardiac: Regular rhythm, regular rate with no murmurs all over the precordium. Respiratory: Equal breath sounds bilaterally, no tachypnea, no wheezing ,rub or rales, Chest wall is symmetric and without deformity. Gastrointestinal: Abdomen symmetric, non-distended, soft, non-tender, normal bowel sounds x4 quadrant, normoactive, no hepatosplenomegaly Musculoskeletal: No pedal edema, no cyanosis Neurological: Mental status exam: alert and consciousness, orientation, memory, speech - Cranial nerve test: Cranial nerves 2-12 intact - Motor system: Nutrition, Tone 3+, Power 5/5, no involuntary movements - Sensory system: Intact - Reflex testing: Biceps, triceps and knee reflexes 2+ - Cerebellar: Normal Skin: Warm and dry Diagnostic Data Last Recorded Lab Results: 01/28/25 1458 01/28/25 1458 Advance Care Planning Advanced Care plannin - 30 Minutes Additional Plan 1. Atrial Flutter (with 2:1 AV block, converted to sinus rhythm after Diltiazem drip) Ruslan Vasc score 3 Likely new-onset paroxysmal atrial flutter, possibly triggered by ischemia or recent PCI Now in sinus rhythm, HR 70, BP 94/68 Plan: Continue telemetry monitoring Hold further Diltiazem drip; resume cautiously if BP improves. Initiated metoprolol tartate 25 mg p.o. b.i.d. for rate control, can transition to succinate during discharge for cardioprotective Cardiology consult, doctor Too Fenton in a.m. for rhythm management and anticoagulation strategy Maintain K >4, Mg >2 to reduce arrhythmia risk However, patient is <1 mo post-PCI with drug-eluting stents (LAD + Cx) and is on dual antiplatelet therapy (Aspirin + Clopidogrel) Adding Eliquis (triple therapy) markedly increases bleeding risk Please consult Cardiology tomorrow and discussed regarding anticoagulation strategy (triple therapy versus dual) If doctor Too Fenton approves, initiated Eliquis 5 mg p.o. b.i.d. (patient will not meet criteria for Eliquis 2.5 mg p.o. b.i.d., considering age and weight) 2. Coronary Artery Disease S/P PCI (LAD and Mid Circumflex, 12/27/24) PCI with stent in LAD mid-circumflex, ALIDA-3 flow, no complications Plan: Continue dual antiplatelet therapy (DAPT) Aspirin + clopidogrel Cardiology follow-up (Dr. Too Fenton) for medication optimization and duration of DAPT vs anticoagulation. Continue Metoprolol succinate as tolerated Started atorvastatin 80 mg p.o. daily along with ezetimibe Troponins negative 3 Acute Kidney Injury on Chronic Kidney Disease (Baseline Cr 1.7 now 2.55, BUN 52)- ATN CKD likely stage 3b; JANA likely multifactorial (contrast exposure, hemodynamics, medication related) Plan: Hold nephrotoxins NSAIDs, IV contrast, SANDY inhibitors (Lisinopril), Allopurinol Nephrology consult inpatient if creatinine trends up Patient will benefit from long-term nephrology follow up outpatient Maintain euvolemia avoid dehydration or overload Monitor BMP daily and strict I/O Unremarkable renal ultrasound during the last admission Urine lytes ordered Gentle hydration with NS at 100 cc/hour 4. Hypertension Currently lownormal BP (94/68) Plan: Hold Lisinopril for now due to JANA and soft BP Continue Metoprolol succinate for rate control and ischemic protection if BP tolerates Reassess need for ACEi once renal function improves 5 Hyperlipidemia LDL 82, TG 162, on Fenofibrate and Ezetimibe Plan: Switched to high-intensity statin (Atorvastatin 80 mg daily) Continue Ezetimibe Repeat lipid panel ordered Holding fenofibrate for now in view of JANA on CKD 6 Prediabetes (A1c 6.3) Plan: Lifestyle and diet counseling Target A1c 6.5 to 7 7 Gout / History of Nephrolithiasis Asymptomatic, Allopurinol held due to renal function Plan: Resume Allopurinol only after nephrology consultation outpatient Allopurinol 50-100 mg daily is safe for this patient considering GFR less than 30 Disposition Admit to telemetry. Consult Cardiology for anticoagulation strategy in a.m. Nephrology if creatinine trends up Code Status: I spent a total of 17 minutes on reviewing various resuscitative measures with the patient at the time of admission. The patient has decided on a full code status. DVT Prophylaxis: Heparin SQ Wild Hagan MD Internal Medicine Resident, PGY-2 Date of Service: Jan 28, 2025 Billing Provider: KENZIE STEPHENS MD Common Visit Codes: 51386-DTAIDQV INP/OBS CARE (HIGH) Secondary Visit Codes: 33043-[id number] CARE PLAN 30 MINUTES WILD HAGAN, RES Jan 28, 2025 17:48 KENZIE STEPHENS MD Feb 06, 2025 07:58
[2025-01-28] MEDS ORDERED: metoprolol succinate 25mg (24-HOUR) SR. Tablet PO SCH (18:05)
[2025-01-28] MEDS: normal saline 1000ml 1,000 ML IV SCH (18:28)
[2025-01-28 20:00] VITALS: BP 115/56; PULSE 60; RESP 14; TEMP 97.3; O2SAT 100
[2025-01-28] MEDS: docusate sod 100mg capsule PO SCH (20:00)
[2025-01-28] MEDS: K and/or MAG REPLACEMENT MC SCH (20:00)
[2025-01-28 22:00] VITALS: BP 102/57; PULSE 60; RESP 16; TEMP 97.6; O2SAT 96
[2025-01-28] MEDS: heparin, porcine 5000 units/ml vial SQ SCH (22:31)
[2025-01-29 02:00] VITALS: BP 98/61; PULSE 60; RESP 14; TEMP 97.1; O2SAT 95
[2025-01-29 06:00] VITALS: BP 107/62; PULSE 59; RESP 20; TEMP 97.7; O2SAT 98
[2025-01-29 06:19] LABS: MEAN PLATELET VOLUME 8.4 FL (7.4-10.4); RED CELL DISTRIBUTION WIDTH 14.1 % (11.5-14.5)
[2025-01-29 07:01] LABS: CHOL/HDL RATIO 4.8 (0.00-4.99); CREATININE 2.25 MG/DL (0.60-1.10); TOTAL CARBON DIOXIDE 24.1 MMOL/L (24-32); eCRCL 30 ML/MIN; eGFR 29 ML/MIN
[2025-01-29 07:15] LABS: LDL CHOLESTEROL 84 MG/DL (50-100)
[2025-01-29] MEDS: cholecalciferol (vitamin D3) 1,000 unit (25mcg) tablet PO SCH (08:54)
[2025-01-29 11:00] VITALS: BP 108/62; PULSE 65; RESP 18; TEMP 98; O2SAT 99
--- NOTE | 2025-01-29 12:01 | CONSULTATION REPORT - RESIDENT ---
Consult Providers to CC Resident Creating Document: CAESAR YAN, RES CC: BLOSSOM SOL MD History of Present Illness Reason for Admit\Complaint: Palpitations History of Present Illness 64-year-old male with HTN, HLD, CAD s/p PTCA stents, and chronic kidney disease presented to the ED in view of palpiatations. Pt states that he started to have paliptation at about afternoon on the day of admission that resolved with Diltiazem drip in the ED.Pt had associated dizziness, denies associated SOB, Chest pain or diaphoresis during the episode. Pt denies LOC during or prior to the episode. Pt's HR was in the range of 140s during the episode. Reportedly, pt had an encounter with similar presentation in Nov, when he underwent Lexiscan indicating anteroseptal wall reversible defect. Pt denied cardiac cath at that time. Pt presented back on 01/01 when he underwent cath wiuth stent placement in LAD and LCX. Since, then pt was on Aspirin and Plavix. In the ED, pt's EKG showed Atrial flutter with 2:1 conduction. Pt turned back into sinus rhythm on Cardizem drip. Cardiology was consulted in view of the above and recommendations on anticoagulation. Allergies: Coded Allergies: Sulfa (Sulfonamide Antibiotics) (Verified Allergy, Severe, RASH, 11/22/24) Home Medications Home Medications Active Reported Plavix (Clopidogrel Bisulfate) 75 Mg Tablet 1 Tab PO DAILY 30 Days Aspirin 81 Mg Tab.chew 2 Tab PO DAILY 30 Days Vitamin D3 (Cholecalciferol (Vitamin D3)) 50 Mcg (2000 Unit) Capsule 1 Cap PO DAILY 30 Days Vitamin C* (Ascorbic Acid) 500 Mg Tablet 1 Tab PO DAILY 30 Days Ezetimibe 10 Mg Tablet 1 Tab PO DAILY Fenofibrate 160 Mg Tablet 1 Tab PO DAILY Allopurinol 300 Mg Tablet 1 Tab PO DAILY Lisinopril 20 Mg Tablet 1 Tab PO DAILY Past Medical History Past Medical History Hypertension Hyperlipidemia Gout on allopurinol Renal calculi Silent ischemia in 2002, underwent angiogram which was normal CKD since 2019 CAD status post coronary catheterization with stent placement Past Surgical History Surgical History Comment Coronary catheterization with stent placement on 01/01/2025 Ankle surgery for neuroma in 2000 Surgery for pilonidal cyst in 2001 Family History Family History: Coronary artery disease in mother Past Social History Social History Comment Denies alcohol, tobacco and illicit drug use. ROS ROS Constitutional: No fever, chills, dizziness, weight gain or loss Eyes: No pain, erythema, discharge, blurring of vision ENT: No sore throat, epistaxis, tinnitus Cardiovascular: Palpitations, No Shortness of breath. Chest pressure, chest discomfort, syncope, lower extremity edema, paroxysmal nocturnal dyspnea Respiratory: No Shortness of breath and cough, No hemoptysis Gastrointestinal: Normal appetite. No nausea, vomiting, diarrhea, constipation, hematemesis, abdominal pain, bloating, melena or fresh blood Musculoskeletal: No deformities, joint pains, edema Integumentary: No change in skin, hair, nails. No swelling, bruising, abrasions Neurologic: No headache, neck pain, numbness or tingling of the extremities, weakness Psychiatric: No delusions, depression, loss of interest in normal activity or change in sleep pattern, hallucinations, suicidal ideations Endocrine: No fatigue, weakness, polydipsia, polyuria, change in appetite, heat or cold intolerance, sweating, dry skin Exam Vitals: Vital Signs Date Time Temp Pulse Resp B/P (MAP) Pulse Ox O2 Delivery O2 Flow Rate FiO2 01/29/25 08:00 65 01/29/25 02:00 97.1 14 98/61 (73) 95 Room Air 01/28/25 18:04 0 General: General: Alert, awake, oriented, not in acute distress HEENT: PERRLA, no icterus, pallor, lymphadenopathy, carotid bruit Respiratory system: Bilateral vesicular breath sounds heard, no adventitious breath sounds CVS: S1-S2 heard, no murmurs/rubs/gallop GI: Soft, nontender, no organomegaly, no guarding/rigidity, bowel sounds present Neuro: No focal neurological deficits present Mental status exam: alert and consciousness, orientation, memory, speech - Cranial nerve test: Cranial nerves 2-12 intact - Motor system: Nutrition, Tone 3+, Power 5/5, no involuntary movements - Sensory system: Intact - Reflex testing: Biceps, triceps and knee reflexes 2+ - Cerebellar: Normal Extremities: No edema cyanosis clubbing/deformities Skin: Warm and dry Diagnostic Data Last Recorded Lab Results: 01/29/25 0554 01/29/25 0554 Additional Plan Assessment: A 64 yr old male with PMH of CKD, CADs/p PTCA stenting presented to the ER in view of palpitations. EKG in ER showed atrial flutter with 2:1 conduction block that resolved with cardizem drip. Cardiology is consulted in view of the above. Plan: Palpitations, Recurrent Atrial Flutter, 2:1 conduction block [id number]: 2 Pt had recurrent episodes of palpitations with the current episode showing Atrial flutter. Echo in 11/27 revealed EF: 70%. TSH normal QTC: 419 Start the pt on Sotalol 80 mg once daily in view of low CrCL. Will reevaluate in am fot the change in dosage vs freq. Stop Metoprolol tartarate. Strt the pt on Eliquis 5 mg BID Advise on outpatient sleep study. EKG in am, follow up with QTC. CAD s/p PTCA stenting in 12/28 Deescalate Aspirin to 81 mg daily, Cont Plavix 75 mg once daily GDMT: Sotalol, Can strt Losartan 25 mg once the BP stabilises. Noticed low BP readings. Atorvastatin 80 mg once daily Code status: Full code DVT prophylaxis: Eliquis Diet: Heart healthy Disposition: Cardiology will continue to follow the patient, EKG in am Caesar Yan MD PGY 2, Internal medicine In view of patient CKD recommend avoiding sotalol and consider amiodarone Sepsis Screening Reassessment Date: Jan 30, 2025 Date of Service: Jan 29, 2025 Billing Provider: BLOSSOM SOL MD, SIVA, RES Jan 29, 2025 12:01 BLOSSOM SOL MD Jan 30, 2025 18:54
--- NOTE | 2025-01-29 14:56 | ELECTROCARDIOGRAPH REPORT ---
[facility] Test Date: 2025-01-29 Test Time: 14:54:18 Pat Name: RAMYA CLIFFORD Department: [facility] 3S Patient ID: [facility]-[id number] Room: [place] [address] B Gender: M [employer]: : 1960 Requested By: MARISSA YAN Order Number: [id number] Reading MD: Dr. Belle Cruz Measurements Intervals [employer] Rate: 57 P: 68 AL: 175 QRS: 54 QRSD: 94 T: 21 QT: 402 QTc: 392 Interpretive Statements Sinus rhythm Low voltage, precordial leads Electronically Signed On 01-30-2025 6:47:[address] Belle Cruz Please click the below link to view image of tracing.
[2025-01-29 15:00] VITALS: BP 96/53; PULSE 58; RESP 18; TEMP 97.7; O2SAT 98
--- NOTE | 2025-01-29 16:27 | PROGRESS NOTE- Residence ---
Progress Note - Resident Providers to CC Resident Creating Document: MEMO CARY RES ~ Antibiotic Timeout Antibiotic Ordered?: No Subjective Patient was seen and examined at the bedside. He is completely asymptomatic today, denying palpitation, chest pain, shortness of breath, nausea or vomiting. Patient is now back in sinus rhythm and has no overnight events reported.. Objective Vital Signs Date Time Temp Pulse Resp B/P (MAP) Pulse Ox O2 Delivery O2 Flow Rate FiO2 01/29/25 15:00 97.7 58 18 96/53 (67) 98 Room Air 01/29/25 08:00 0.0 Result Diagram: 01/29/25 0554 01/29/25 0554 General: Awake and Alert, no acute distress. HEENT: Conjunctiva pink, Sclera clear, Mucus Membranes moist. Neck: Supple without masses and tenderness. Resp: Unlabored. Lungs clear to auscultation bilaterally. Heart: Regular Rate and rhythm, normal S1 and S2 without murmur, rub or gallop. Abdomen: Soft and non tender no organomegaly Extremities: No cyanosis,clubbing or edema. Skin: Warm and Dry. Coagulation Studies Laboratory Tests Test 01/29/25 15:21 D-Dimer 0.24 MG/L FEU (0-0.50) D-Dimer Comment Plan Plan 1. Atrial Flutter (with 2:1 AV block, converted to sinus rhythm after Diltiazem drip) Ruslan Vasc score 3 points (age, hypertension, prior MT) Likely new-onset paroxysmal atrial flutter, possibly triggered by ischemia or recent PCI Now in sinus rhythm, stable vital signs Patient was initially treated with Cardizem drip, discontinued after he developed bradycardia Plan: Consulted Dr. Carvajal, pending recommendations Started on Eliquis 5 mg b.i.d. Hold metoprolol due to bradycardia Possible discharge tomorrow 2. Coronary Artery Disease S/P PCI (LAD and Mid Circumflex, 12/27/24) Hyperlipidemia Hypertension - well-controlled PCI with stent in LAD mid-circumflex, ALIDA-3 flow, no complications LDL 84, HDL 30, triglycerides 185 Systolic pressure 92-115mmHg and diastolic pressure 56-71mmHg in the past 24 hours Plan: Continue dual antiplatelet therapy (DAPT) Aspirin + clopidogrel Hold lisinopril metoprolol temporarily due to JANA and bradycardia Reassess need for ACEi once renal function improves Started atorvastatin 80 mg p.o. daily along with ezetimibe Troponins negative 3 Acute Kidney Injury on Chronic Kidney Disease (Baseline Cr 1.7 now 2.55, BUN 52)- ATN CKD likely stage 3b; JANA likely multifactorial (contrast exposure, hemodynamics, medication related) Plan: Hold nephrotoxins NSAIDs, IV contrast, SANDY inhibitors (Lisinopril), Allopurinol Nephrology consult inpatient if creatinine trends up Patient will benefit from long-term nephrology follow up outpatient Maintain euvolemia avoid dehydration or overload Monitor BMP daily and strict I/O Unremarkable renal ultrasound during the last admission Urine lytes ordered Gentle hydration with NS at 100 cc/hour 01/29/25 Creatinine down to 2.25 from 2.55 No signs of fluid overload Continue NS at 100mL/h 4. Other comorbidities Prediabetes (A1c 5.9) Gout / History of Nephrolithiasis No recent gout flare or symptomatic nephrolithiasis, Allopurinol held due to renal function Plan: Lifestyle and diet counseling Monitor A1c frequently outpatient Resume Allopurinol after nephrology consultation outpatient Code Status: Full code DVT prophylaxis: Eliquis Analgesia/sedation: Morphine Line/tube: PIV GI prophylaxis: Pantoprazole Nutrition: Heart healthy diet Prognosis: Guarded Physical therapy: Pending evaluation Disposition: Started on Eliquis. Anticipated discharge tomorrow. Date of Service: Jan 29, 2025 Billing Provider: KENZIE STEPHENS MD Common Visit Codes: [id number] INP/OBS CARE(HIGH) [facility], RES Jan 29, 2025 16:27 KENZIE STEPHENS MD Feb 06, 2025 07:58
[2025-01-29 18:00] VITALS: BP 110/70; PULSE 57; RESP 17; TEMP 97; O2SAT 98
[2025-01-29 22:00] VITALS: BP 101/54; PULSE 58; RESP 20; TEMP 97.4; O2SAT 98
[2025-01-30] VITALS (8 sets, daily range): BP systolic 103–131; BP diastolic 50–64; PULSE 50–67; RESP 16–20; TEMP 97–97.9; O2SAT 96–100
[2025-01-30 06:23] LABS: MEAN PLATELET VOLUME 8.6 FL (7.4-10.4); RED CELL DISTRIBUTION WIDTH 13.5 % (11.5-14.5)
--- NOTE | 2025-01-30 06:31 | ELECTROCARDIOGRAPH REPORT ---
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 JUVENTINO Carvajal Measurements Intervals [place] Rate: 51 P: 79 [place]: 181 QRS: 39 QRSD: 98 T: 7 QT: 425 QTc: 392 Interpretive Statements Sinus rhythm Electronically Signed On 01-30-2025 18:49:[address] JUVENTINO Carvajal Please click the below link to view image of tracing.
[2025-01-30 06:46] LABS: CREATININE 2.18 MG/DL (0.60-1.10); TOTAL CARBON DIOXIDE 25.5 MMOL/L (24-32); eCRCL 31 ML/MIN; eGFR 30 ML/MIN
[2025-01-30] MEDS: pantoprazole 40mg Tablet.DR PO SCH (08:20)
--- NOTE | 2025-01-30 16:14 | PROGRESS NOTE- Residence ---
Progress Note - Resident Providers to CC Resident Creating Document: MARISSA CLIFTON, LAWRENCE CC: BLOSSOM SOL MD ~ Antibiotic Timeout Antibiotic Ordered?: No Subjective Patient was seen and examined at the bedside. Pt doesnt have palpitations of chest discomfort. His HR continues to be in the range of higher 50s. Objective Vital Signs Date Time Temp Pulse Resp B/P (MAP) Pulse Ox O2 Delivery O2 Flow Rate FiO2 01/30/25 11:00 97.9 58 20 112/55 (74) 100 01/30/25 08:00 Room Air 01/29/25 20:00 0.0 Result Diagram: 01/30/25 0601/30/25 06 General: Alert, awake, oriented, not in acute distress HEENT: PERRLA, no icterus, pallor, lymphadenopathy, carotid bruit Respiratory system: Bilateral vesicular breath sounds heard, no adventitious breath sounds CVS: S1-S2 heard, no murmurs/rubs/gallop GI: Soft, nontender, no organomegaly, no guarding/rigidity, bowel sounds present Neuro: No focal neurological deficits present Mental status exam: alert and consciousness, orientation, memory, speech - Cranial nerve test: Cranial nerves 2-12 intact - Motor system: Nutrition, Tone 3+, Power 5/5, no involuntary movements - Sensory system: Intact - Reflex testing: Biceps, triceps and knee reflexes 2+ - Cerebellar: Normal Extremities: No edema cyanosis clubbing/deformities Skin: Warm and dry Coagulation Studies Laboratory Tests Test 01/29/25 15:21 D-Dimer 0.24 MG/L FEU (0-0.50) D-Dimer Comment Assessment Assessment A 64 yr old male with PMH of CKD, CADs/p PTCA stenting presented to the ER in view of palpitatins. EKG in ER showed atrial flutter with 2:1 conduction block that resolved with cardizem drip. Cardiology is consulted in view of the above. Plan Plan Palpitations, Recurrent Atrial Flutter, 2:1 conduction block [id number]: 2 QTC: 419 Dc sotalol, Strt the pt on amiodarone 400 mg bid for 2 weeks f/b 200 mg bid for 1 week f/b 200 mg once daily. Continue pt on Eliquis 5 mg BID Strongly suggest outpatient sleep study. Recommend op f/u with Dr. Sol within a week with repeat EKG. Will evaluate the patient for possible ablation at the clinic CAD s/p PTCA stenting in 12/28 Deescalate Aspirin to 81 mg daily, Cont Plavix 75 mg once daily GDMT: Losartan 25 mg once the BP stabilises. Cannot currently start a beta marguerite in view of low HR Atorvastatin 80 mg once daily Code status: Full code DVT prophylaxis: Eliquis Diet: Heart healthy Disposition: Outpatient Cardiology follow up in a week. Marissa Clifton MD PGY 2, Internal medicine Patient seen and examined by Dr. Gerardo SCHREIBER. Options of further evaluation for AFib ablation were discussed with the patient. Date of Service: Jan 30, 2025 Billing Provider: BLOSSOM SOL MD, SIVA, RES Jan 30, 2025 16:14 BLOSSOM SOL MD Jan 30, 2025 18:53
--- NOTE | 2025-01-30 17:45 | PROGRESS NOTE- Residence ---
Progress Note - Resident Providers to CC Resident Creating Document: WILD HAGAN, LAWRENCE ~ Antibiotic Timeout Antibiotic Ordered?: No Subjective Patient was seen and examined at the bedside. Tele shows sinus rhythm with heart rate between 55-60, otherwise no acute overnight symptoms. He has no further episodes of palpitations. Objective Vital Signs Date Time Temp Pulse Resp B/P (MAP) Pulse Ox O2 Delivery O2 Flow Rate FiO2 01/30/25 11:00 97.9 58 20 112/55 (74) 100 01/30/25 08:00 Room Air 01/29/25 20:00 0.0 Result Diagram: 01/30/25 0602 01/30/25 0602 Awake , alert, and oriented x4, resting comfortably in the bed, in no acute distress HEENT: Atraumatic, normocephalic, EOMI, anicteric sclera ; pink conjunctiva Neck: Trachea midline. Supple, full range of motion, no JVD Cardiac: Regular rhythm, regular rate with no murmurs all over the precordium. Respiratory: Equal breath sounds bilaterally, no tachypnea, no wheezing ,rub or rales, Chest wall is symmetric and without deformity. Gastrointestinal: Abdomen symmetric, non-distended, soft, non-tender, normal bowel sounds x4 quadrant, normoactive, no hepatosplenomegaly Musculoskeletal: No pedal edema, no cyanosis Neurological: Mental status exam: alert and consciousness, orientation, memory, speech - Cranial nerve test: Cranial nerves 2-12 intact - Motor system: Nutrition, Tone 3+, Power 5/5, no involuntary movements - Sensory system: Intact - Reflex testing: Biceps, triceps and knee reflexes 2+ - Cerebellar: Normal Skin: Warm and dry Coagulation Studies Laboratory Tests Test 01/29/25 15:21 D-Dimer 0.24 MG/L FEU (0-0.50) D-Dimer Comment Advance Care Planning Advanced Care plannin - 30 Minutes Assessment Assessment A 64 yr old male with PMH of CKD, CADs/p PTCA stenting presented to the ER in view of palpitatins. EKG in ER showed atrial flutter with 2:1 conduction block that resolved with cardizem drip. Cardiology is consulted in view of the above. Plan Plan 1. Atrial Flutter (with 2:1 AV block, converted to sinus rhythm after Diltiazem drip) Ruslan Vasc score 3 points (age, hypertension, prior RI) Likely new-onset paroxysmal atrial flutter, possibly triggered by ischemia or recent PCI Now in sinus rhythm, stable vital signs Patient was initially treated with Cardizem drip, discontinued after he developed bradycardia Plan: Consulted Dr. Carvajal, appreciate recommendations Cardiology advised: amiodarone p.o. 400 mg bid for 2 weeks followed by 200 mg bid for 1 week followed by 200 mg once daily Follow up outpatient in Dr. Too Fenton's clinic in 1 week Patient will benefit from early ablation; follow outpatient Tele shows sinus rhythm with heart rate between 55-60 Continue Eliquis 5 mg b.i.d. Held metoprolol and sotalol due to bradycardia and acute kidney injury 2. Coronary Artery Disease S/P PCI (LAD and Mid Circumflex, 12/27/24) Hyperlipidemia Hypertension - well-controlled PCI with stent in LAD mid-circumflex, ALIDA-3 flow, no complications LDL 84, HDL 30, triglycerides 185 Systolic pressure 92-115mmHg and diastolic pressure 56-71mmHg in the past 24 hours Plan: Continue dual antiplatelet therapy (DAPT) Aspirin + clopidogrel Hold lisinopril metoprolol temporarily due to JANA and bradycardia Reassess need for ACEi once renal function improves Home medications for hyperlipidemia include fenofibrate and ezetimibe; Held fenofibrate in view of JANA Started atorvastatin 80 mg p.o. daily along with ezetimibe Troponins negative 01/28/2025: Patient refused statins due to significant flu-like symptoms over the past Hence discontinued atorvastatin. Had a conversation with Dr. Too Fenton, he recommended to hold atorvastatin and fenofibrate, and continue ezetimibe He also recommended that patient would benefit from Repatha; pending insurance approval He will follow up with patient in his clinic in 1 week 3 Acute Kidney Injury on Chronic Kidney Disease (Baseline Cr 1.7 now 2.55, BUN 52)- ATN CKD likely stage 3b; JANA likely multifactorial (contrast exposure, hemodynamics, medication related) Plan: Hold nephrotoxins NSAIDs, IV contrast, SANDY inhibitors (Lisinopril), Allopurinol, Fenofibrate Nephrology consult inpatient if creatinine trends up Patient will benefit from long-term nephrology follow up outpatient Maintain euvolemia avoid dehydration or overload Monitor BMP daily and strict I/O Unremarkable renal ultrasound during the last admission Urine lytes ordered Gentle hydration with NS at 100 cc/hour 01/29/25 Creatinine down to 2.25 from 2.55 No signs of fluid overload Continue NS at 100mL/h 01/30/2025: Creatinine trended down to 2.[address] Woodard, awaiting recommendations; we will see patient in a.m. tomorrow Urine lytes pending 4. Other comorbidities Prediabetes (A1c 5.9) Gout / History of Nephrolithiasis No recent gout flare or symptomatic nephrolithiasis, Allopurinol held due to renal function Plan: Lifestyle and diet counseling Monitor A1c frequently outpatient Resume Allopurinol after nephrology consultation outpatient Code Status: Full code DVT prophylaxis: Eliquis Analgesia/sedation: Morphine Line/tube: PIV GI prophylaxis: Pantoprazole Nutrition: Heart healthy diet Prognosis: Guarded Physical therapy: Pending evaluation Disposition: Anticipated discharge in 24-48 hours [place] PGY2, IM Resident Date of Service: Jan 30, 2025 Billing Provider: KENZIE STEPHENS MD Common Visit Codes: [id number] INP/OBS CARE(HIGH) WILD HAGAN, RES Jan 30, 2025 17:45 KENZIE STEPHENS MD Feb 06, 2025 07:58
[2025-01-30 20:06] LABS: CREATININE,URINE RANDOM 16.0 MG/DL
[2025-01-30 20:13] LABS: OSMOLALITY UA 228.0 MOSM/K (50-1400)
[2025-01-31 02:00] VITALS: BP 107/54; PULSE 64; RESP 19; TEMP 97; O2SAT 92
--- NOTE | 2025-01-31 07:00 | ELECTROCARDIOGRAPH REPORT ---
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 Belle Cruz Measurements Intervals [place] Rate: 55 P: 60 [place]: 181 QRS: 54 QRSD: 94 T: 24 QT: 411 QTc: 393 Interpretive Statements Sinus rhythm Electronically Signed On 01-31-2025 7:02:[address] Belle Cruz Please click the below link to view image of tracing.
[2025-01-31 07:03] LABS: MEAN PLATELET VOLUME 8.8 FL (7.4-10.4); RED CELL DISTRIBUTION WIDTH 13.9 % (11.5-14.5)
[2025-01-31 07:43] VITALS: RESP 18; O2SAT 97
[2025-01-31 07:47] LABS: CREATININE 1.80 MG/DL (0.60-1.10); TOTAL CARBON DIOXIDE 22.2 MMOL/L (24-32); eCRCL 38 ML/MIN; eGFR 38 ML/MIN
--- NOTE | 2025-01-31 08:24 | CONSULTATION REPORT ---
Consult Providers to CC ~ History of Present Illness Primary Medical Doctor: Wild Rey MD Reason for Admit\Complaint: CKD 3-4, History of Present Illness I have been asked to do renal consult and follow up of this 64-year-old male with HTN, HLD, CAD s/p PTCA stents, and chronic kidney disease presented to the ED in view of palpitations. He has seen once in 2019 for renal consult in the office. He had a serum creatinine of 1.9 then. He apparently had one kidney that was obstructed that later resolved. CT scan was done as requestedby in 2019, that showed bilateral atrophic kidneys. Pt denies associated SOB, Chest pain or diaphoresis during the episode. Pt denies LOC during or prior to the episode. Pt's HR was in the range of 140s during the episode. Reportedly, pt had an encounter with similar presentation in Nov, when he underwent Lexiscan indicating anteroseptal wall reversible defect. Pt denied cardiac cath at that time. Pt presented back on 01/01 when he underwent cath with stent placement in LAD and LCX. Since, then pt was on Aspirin and Plavix. In the ED, pt's EKG showed Atrial flutter with 2:1 conduction. PCI with stent in LAD mid-circumflex, ALIDA-3 flow, no complications LDL 84, HDL 30, triglycerides 185 Systolic pressure 92-115mmHg and diastolic pressure 56-71mmHg in the past 24 hours Allergies: Coded Allergies: Sulfa (Sulfonamide Antibiotics) (Verified Allergy, Severe, RASH, 11/22/24) Home Medications Home Medications Active Reported Plavix (Clopidogrel Bisulfate) 75 Mg Tablet 1 Tab PO DAILY 30 Days Aspirin 81 Mg Tab.chew 2 Tab PO DAILY 30 Days Vitamin D3 (Cholecalciferol (Vitamin D3)) 50 Mcg (2000 Unit) Capsule 1 Cap PO DAILY 30 Days Vitamin C* (Ascorbic Acid) 500 Mg Tablet 1 Tab PO DAILY 30 Days Ezetimibe 10 Mg Tablet 1 Tab PO DAILY Fenofibrate 160 Mg Tablet 1 Tab PO DAILY Allopurinol 300 Mg Tablet 1 Tab PO DAILY Lisinopril 20 Mg Tablet 1 Tab PO DAILY Past Medical History Past Medical History Hypertension Hyperlipidemia Gout on allopurinol Renal calculi Silent ischemia in 2002, underwent angiogram which was normal CKD since 2019 CAD status post coronary catheterization with stent placement Past Surgical History Surgical History Comment Coronary catheterization with stent placement on 01/01/2025 Ankle surgery for neuroma in 2000 Surgery for pilonidal cyst in 2001 Family History Family History: Coronary artery disease in mother Past Social History Social History Comment Denies alcohol, tobacco and illicit drug use. DRE ERICKSON feels a lotbetter. interested in going home today. No new complaints. no shortness of breath or chest pain, or worening benitez of the legs. Exam Vitals: Vital Signs Date Time Temp Pulse Resp B/P (MAP) Pulse Ox O2 Delivery O2 Flow Rate FiO2 01/31/25 07:43 18 97 Room Air 01/30/25 22:00 97.2 67 126/50 (75) 2.0 General: Vital Signs: As above General: Normal body habitus, no acute distress. Skin: No rashes, lumps, ulcers, blisters, purpura or petechiae HEENT: Anicteric sclera, KRISTIN Neck: Supple and nontender without enlargement of the thyroid, or lymphadenopathy. Chest: Normal size and shape, no tenderness, CTA bilaterally Heart: Regular. No jugular venous distention, S1 and S2 heard , no gallop Abdomen: Soft and non tender no organomegaly,BS+ Extremities: No pedal edema Neuro: Nonfocal. Diagnostic Data Last Recorded Lab Results: 01/31/2563001/31/25630 Diagnostic Data: Laboratory Tests Test 01/29/25 15:21 D-Dimer 0.24 MG/L FEU (0-0.50) D-Dimer Comment Problems: (1) CKD (chronic kidney disease) stage 4, GFR 15-29 ml/min Assessment & Plan: He has CKD 3B-4 with eGFR 29-32 fluctuant. He has been in this stage since 2019 when he saw for once in the office. thankfully his CKD has remained stable over the years. This is reassuring. He did have contrast exposure but again, thankfully has not sustained contrast nephropathy. He should be fine to return to our office in 3-4 months . continue with healthy eating, with DASH diet and will follow up with as such. He also follows with . repeat renal labs in a week to make sure the creatinine did not go up further. Stable for discharge from renal standpoint. (2) CAD (coronary artery disease) Assessment & Plan: s/p coronary stents. to see me in office in 3-4 months. I have made arrangemenet for that. Problem Qualifiers (1) CAD (coronary artery disease): Coronary Disease-Associated Artery/Lesion type: chronic coronary microvascular dysfunction Qualified Codes: I25.85 - Chronic coronary microvascular dysfunction RANJANA LONG MD Jan 31, 2025 08:24
--- NOTE | 2025-01-31 10:10 | PROGRESS NOTE- Residence ---
Progress Note - Resident Providers to CC Resident Creating Document: CAESAR CLIFTON RES CC: BLOSSOM SOL MD ~ Antibiotic Timeout Antibiotic Ordered?: No Subjective Patient was seen and examined at bedside. Patient is comfortably sitting in his chair, his was at bedside. An extensive discussion was held with the and the patient in view of atorvastatin. Patient stated that he had flu-like symptoms whenever he took a statin. He preferred to take Repatha. He also expressed issues with insurance in clearing Repatha that they have been dealing with for over a month. Patient was clearly explained about the function of a statin in the need to prevent further worsening of coronary artery disease. Patient was advised to bridge the period with statin until he gets Repatha. Patient is completely agreeable to the situation after he was also suggested to take some Tylenol whenever he has some muscle aches. Patient had low heart rate in the range of 39-41 for about a minute this morning. Objective Vital Signs Date Time Temp Pulse Resp B/P (MAP) Pulse Ox O2 Delivery O2 Flow Rate FiO2 01/31/25 07:43 18 97 Room Air 01/31/25 06:00 50 01/30/25 22:00 97.2 126/50 (75) 2.0 Result Diagram: 01/31/2563001/31/25630 General: Alert, awake, oriented, not in acute distress HEENT: PERRLA, no icterus, pallor, lymphadenopathy, carotid bruit Respiratory system: Bilateral vesicular breath sounds heard, no adventitious breath sounds CVS: S1-S2 heard, no murmurs/rubs/gallop GI: Soft, nontender, no organomegaly, no guarding/rigidity, bowel sounds present Neuro: No focal neurological deficits present Mental status exam: alert and consciousness, orientation, memory, speech - Cranial nerve test: Cranial nerves 2-12 intact - Motor system: Nutrition, Tone 3+, Power 5/5, no involuntary movements - Sensory system: Intact - Reflex testing: Biceps, triceps and knee reflexes 2+ - Cerebellar: Normal Extremities: No edema cyanosis clubbing/deformities Skin: Warm and dry Coagulation Studies Laboratory Tests Test 01/29/25 15:21 D-Dimer 0.24 MG/L FEU (0-0.50) D-Dimer Comment Assessment Assessment A 64 yr old male with PMH of CKD, CADs/p PTCA stenting presented to the ER in view of palpitatins. EKG in ER showed atrial flutter with 2:1 conduction block that resolved with cardizem drip. Cardiology is consulted in view of the above. Plan Plan Palpitations, Recurrent Atrial Flutter, 2:1 conduction block [id number]: 2 Decrease the dose of amiodarone to 200 mg bid for 1 weeks f/b 200 mg once daily in view of bradycardia Continue pt on Eliquis 5 mg BID Strongly suggest outpatient sleep study. Recommend op f/u with Dr. Sol within a week with repeat EKG. Will evaluate the patient for possible ablation at the clinic CAD s/p PTCA stenting in 12/28 Deescalate Aspirin to 81 mg daily, Cont Plavix 75 mg once daily GDMT: Losartan 25 mg once the BP stabilises. Coreg 3.125 mg twice daily, hold for heart rate less than 50 Decreased the dose of Atorvastatin to 40 mg once daily in view of muscle aches, LDL goal < 55 mg/dl, Continue Ezetemibe 10 mg po once daily Code status: Full code DVT prophylaxis: Eliquis Diet: Heart healthy Disposition: Outpatient Cardiology follow up in a week. Caesar Clifton MD PGY 2, Internal medicine Patient seen and examined by Dr. Gerardo SCHREIBER. EKGs sinus rhythm. No QT prolongation. Agree with adding small dose of beta blockers. Date of Service: Jan 31, 2025 Billing Provider: BLOSSOM SOL MD, SIVA, RES Jan 31, 2025 10:10 BLOSSOM SOL MD Jan 31, 2025 17:30
[2025-01-31] MEDS ORDERED: COR3.125T PO (10:31)
[2025-01-31] MEDS ORDERED: AMIO200T76 PO (10:31)
[2025-01-31] MEDS ORDERED: APIX5TAB3 PO (10:31)
[2025-01-31] MEDS ORDERED: ATOR40TA71 PO (14:47)
--- NOTE | 2025-01-31 15:08 | DISCHARGE SUMMARY-Residence ---
Discharge Summary Providers to CC Resident Creating Document: RIK HAGAN, RES ~ Discharge Summary Admission Diagnosis: Afib with RVR Hospital Course DATE OF ADMISSION: 01/28/2025 DATE OF DISCHARGE: 01/31/2025 Discharge Diagnosis\Comment: 1. Atrial Flutter (with 2:1 AV block, converted to sinus rhythm after Diltiazem drip) Ruslan Vasc score 3 points (age, hypertension, prior [place]) 2. Coronary Artery Disease S/P PCI (LAD and Mid Circumflex, 12/27/24) Hyperlipidemia Hypertension - well-controlled 3 Acute Kidney Injury on Chronic Kidney Disease (Baseline Cr 1.7 now 2.55, BUN 52)- ATN CKD likely stage 3b; JANA likely multifactorial (contrast exposure, hemodynamics, medication related) 4. Other comorbidities Prediabetes (A1c 5.9) Gout / History of Nephrolithiasis Operations\Procedures: None Consultants: Cardiology- Dr Too Fenton Complications: None Condition on DC: Stable New Medications: Atorvastatin Calcium (Atorvastatin Calcium) 40 Mg Tablet 1 TAB PO DAILY for 30 Days, #30 TAB 0 Refills Amiodarone Hcl (Cordarone) 200 Mg Tablet 200 MG PO BID for 30 Days, #37 TAB - use 200 mg p.o. twice daily for seven days Followed by - 200 mg p.o. once daily for 23 days 30 days in total Apixaban (Eliquis) 5 Mg Tablet 5 MG PO BID for 30 Days, #60 TAB Carvedilol (Carvedilol) 3.125 Mg Tablet 3.125 MG PO BID for 30 Days, #60 TAB - please stop using carvedilol if heart rate drops below 50 Continued Medications: Ascorbic Acid* (Vitamin C*) 500 Mg Tablet 1 TAB PO DAILY for 30 Days, #30 TAB Aspirin (Aspirin) 81 Mg Tab.chew 2 TAB PO DAILY for 30 Days, #30 TAB Cholecalciferol (Vitamin D3) (Vitamin D3) 50 Mcg (2000 Unit) Capsule 1 CAP PO DAILY for 30 Days, #30 CAP 0 Refills Clopidogrel Bisulfate (Plavix) 75 Mg Tablet 1 TAB PO DAILY for 30 Days, #30 TAB 0 Refills Ezetimibe (Ezetimibe) 10 Mg Tablet 1 TAB PO DAILY Discontinued Medications: Allopurinol (Allopurinol) 300 Mg Tablet 1 TAB PO DAILY Fenofibrate (Fenofibrate) 160 Mg Tablet 1 TAB PO DAILY Lisinopril (Lisinopril) 20 Mg Tablet 1 TAB PO DAILY Discharge Summary: Hospital course: The patient is a 64-year-old male with a past medical history of chronic kidney disease, coronary artery disease status PCI with stenting, hypertension, hyperlipidemia, prediabetes, and history of gout and nephrolithiasis. He presented to the emergency department with palpitations. Initial evaluation revealed atrial flutter with 2:1 conduction block, which converted to sinus rhythm following a diltiazem infusion. During the infusion, the patient developed bradycardia, prompting discontinuation of diltiazem. [place] rdiology was consulted, and based on their recommendations, the patient was started on oral amiodarone with a planned taper and continued on anticoagulation with Eliquis. Beta-blockers and sotalol were held due to bradycardia and acute kidney injury (JANA). Telemetry monitoring remained notable for sinus rhythm with a heart rate of 5560 bpm. The patient was counseled regarding the benefits of early ablation and will follow up in the cardiology clinic. Regarding his coronary artery disease, the patient remained hemodynamically stable throughout hospitalization. Dual antiplatelet therapy with aspirin and clopidogrel was continued. Statin therapy (atorvastatin 80 mg) was initially started but the patient reported history of significant flu-like symptoms. [facility] and advised management with acetaminophen as needed. He was temporarily discharged on atorvastatin 40 mg, with plans to continue until approval of Repatha by insurance. Fenofibrate was held due to acute kidney injury, and ezetimibe was continued on discharge. Blood pressure remained stable without episodes of hypotension, and troponins remained negative. Patient had heart rate around 55-60 through the hospital stay with one episode of heart rate dropping to 40. The patients renal function demonstrated an JANA on chronic kidney disease, with creatinine of 2.5 in admission. The JANA was likely multifactorial, related to contrast exposure from recent PCI, hemodynamic factors, and nephrotoxic medications. Nephrotoxins, including NSAIDs, SANDY inhibitors, fenofibrate, and allopurinol, were held. The patient received gentle intravenous hydration with normal saline at 100 cc/hour, and strict input/output monitoring was maintained. Creatinine gradually improved to 1.80 by hospital day three. Nephrology was consulted, recommended outpatient follow up in four months. Other comorbid conditions, including prediabetes and history of gout/nephrolithiasis, were addressed with counseling on lifestyle and diet, with plans to monitor glycemic control and resume allopurinol after nephrology review in view of JANA. Throughout hospitalization, the patient remained stable, and his acute issuesincluding arrhythmia and AKIwere managed per guidelines. He was discharged with plans for close outpatient follow-up with cardiology and nephrology and instructions regarding medication adjustments [facility] Imaging: CXR: No acute intrathoracic abnormality. Physical Examination Today: Awake , alert, and oriented x4, resting comfortably in the bed, in no acute distress HEENT: Atraumatic, normocephalic, EOMI, anicteric sclera ; pink conjunctiva Neck: Trachea midline. Supple, full range of motion, no JVD Cardiac: Regular rhythm, regular rate with no murmurs all over the precordium. Respiratory: Equal breath sounds bilaterally, no tachypnea, no wheezing ,rub or rales, Chest wall is symmetric and without deformity. Gastrointestinal: Abdomen symmetric, non-distended, soft, non-tender, normal bowel sounds x4 quadrant, normoactive, no hepatosplenomegaly Musculoskeletal: No pedal edema, no cyanosis Neurological: Mental status exam: alert and consciousness, orientation, memory, speech - Cranial nerve test: Cranial nerves 2-12 intact - Motor system: Nutrition, Tone 3+, Power 5/5, no involuntary movements - Sensory system: Intact - Reflex testing: Biceps, triceps and knee reflexes 2+ - Cerebellar: Normal Skin: Warm and dry Laboratory Tests Test 01/29/25 15:21 01/30/25 06:02 01/30/25 19:45 01/31/25 06:31 D-Dimer 0.24 MG/L FEU D-Dimer Comment Thyroid Stimulating Hormone (TSH) 0.84 ulU/ml White Blood Count 4.4 X10'3 4.1 X10'3 Red Blood Count 3.67 X10'6 3.78 X10'6 Hemoglobin 12.2 g/dl 12.1 g/dl Hematocrit 35.2 % 36.4 % Mean Corpuscular Volume 96.1 FL 96.3 FL Mean Corpuscular Hemoglobin 33.2 PG 32.1 PG Mean Corpuscular Hemoglobin Concent 34.6 g/dL 33.3 g/dL Red Cell Distribution Width 13.5 % 13.9 % Platelet Count 238 X10'3 239 X10'3 Mean Platelet Volume 8.6 FL 8.8 FL Neutrophils (%) (Auto) 37.5 % 47.3 % Lymphocytes (%) (Auto) 39.9 % 33.8 % Monocytes (%) (Auto) 12.6 % 9.6 % Eosinophils (%) (Auto) 8.5 % 7.9 % Basophils (%) (Auto) 1.5 % 1.4 % Neutrophils # (Auto) 1.6 X10'3 1.9 X10'3 Lymphocytes # (Auto) 1.7 X10'3 1.4 X10'3 Monocytes # (Auto) 0.6 X10'3 0.4 X10'3 Eosinophils # (Auto) 0.4 X10'3 0.3 X10'3 Basophils # (Auto) 0.1 X10'3 0.1 X10'3 CBC Comment Sodium Level 140 MMOL/L 140 MMOL/L Potassium Level 4.8 MMOL/L 4.6 MMOL/L Chloride Level 108 MMOL/L 110 MMOL/L Carbon Dioxide Level 25.5 MMOL/L 22.2 MMOL/L Anion Gap 7 8 Blood Urea Nitrogen 39 MG/DL 33 MG/DL Creatinine 2.18 MG/DL 1.80 MG/DL Estimated GFR/1.73 m2 30 ML/MIN 38 ML/MIN BUN/Creatinine Ratio 17.9 18.3 Glucose Level 87 MG/DL 90 MG/DL Calcium Level 8.7 MG/DL 8.7 MG/DL Magnesium Level 2.0 MG/DL 1.8 MG/DL Total Bilirubin 0.4 MG/DL 0.4 MG/DL Aspartate Amino Transf (AST/SGOT) 19 U/L 16 U/L Alanine Aminotransferase (ALT/SGPT) 23 U/L 23 U/L Alkaline Phosphatase 26 IU/L 27 IU/L Total Protein 6.6 G/DL 6.5 G/DL Albumin 3.3 G/DL 3.4 G/DL Globulin 3.3 G/DL 3.1 G/DL Albumin/Globulin Ratio 1.0 1.1 Chemistry Comments Urine Eosinophils No eos /HPF Urine Osmolality 228 MOSM/K Urine Random Creatinine 16.0 MG/DL Urine Random Sodium 56 MEQ/L Urine Random Potassium 16 MEQ/L Advise on discharge: - please continue medications as prescribed - follow up with Cardiology in one week, for possible early ablation - follow up with Nephrology outpatient; Dr. Hampton - your creatinine has improved during this hospital stay, but because of your higher creatinine levels over the past few years, please follow up outpatient for regular monitoring - continue aspirin Plavix and Eliquis until further cardiology evaluation - your LDL has not shown any improvement over the past few weeks, but due to higher creatinine, we stopped your fenofibrate, and continued ezetimibe. - please follow up with Cardiology for initiation of Repatha and monitor your lipid panel regularly. We are sending you on atorvastatin for bridging until Repatha is approved by your insurance. - we also held your allopurinol due to high creatinine numbers, recommended dose for allopurinol with your creatinine levels is around 50 to 100 mg, but you are on 300mg, please follow up with your PCP outpatient for dose adjustment and initiation. - Call 911/come to the ED if any emergency *Problems/Diagnosis: (1) CKD (chronic kidney disease) stage 4, GFR 15-29 ml/min (2) CAD (coronary artery disease) Total Time Spent on D/C: > 30 Minutes Date of Service: Jan 31, 2025 Billing Provider: KEZNIE STEPHENS MD Common Visit Codes: 23368-PJR/OBS DISCH DAY >30min Problem Qualifiers (1) CAD (coronary artery disease): Coronary Disease-Associated Artery/Lesion type: chronic coronary microvascular dysfunction Qualified Codes: I25.85 - Chronic coronary microvascular dysfunction RIK HAGAN, RES Jan 31, 2025 15:06 KENZIE STEPHENS MD Feb 06, 2025 07:58
== END 2025-01-31 11:32 | disposition home or self-care (01) | DRG 308 ==
LOC: ER 14:52 → ED HOLD 16:12 → PCU 3S 19:38
PROVIDERS: ADMIT Family Medicine; ATTEND Family Medicine
DX: I48.92 Unspecified atrial flutter (principal); N17.0 Acute kidney failure with tubular necrosis; N18.4 Chronic kidney disease, stage 4 (severe); I12.9 Hypertensive chronic kidney disease with stage 1 through stage 4 chronic kidney disease, or unspecified chronic kidney disease; E87.1 Hypo-osmolality and hyponatremia; I48.91 Unspecified atrial fibrillation; R73.03 Prediabetes; I44.1 Atrioventricular block, second degree; I25.10 Atherosclerotic heart disease of native coronary artery without angina pectoris; E78.5 Hyperlipidemia, unspecified; M10.9 Gout, unspecified; Z82.49 Family history of ischemic heart disease and other diseases of the circulatory system; Z87.442 Personal history of urinary calculi; Z95.5 Presence of coronary angioplasty implant and graft; I25.85 Chronic coronary microvascular dysfunction
CPT/HCPCS: 36415; 71045; 80048; 80053; 80061; 80305; 80320; 81003; 82570; 83036; 83735; 83880; 83930; 83935; 84133; 84300; 84443; 84484; 85025; 85379; 87081; 87207; 93005; 96365; 96375; 99291; G0378; J1644; J3490; J7030